=== PATIENT | female | born 2000 | race Caucasian/White ===

== ENCOUNTER 2024-07-29 19:36 | Emergency (ER) | payer SELFPAY | END 2024-07-29 21:11 | LOC: JD.ED 19:36 | DX: S50.12XA Contusion of left forearm, initial encounter (principal); Z88.0 Allergy status to penicillin; Z88.5 Allergy status to narcotic agent; W00.0XXA Fall on same level due to ice and snow, initial encounter | CPT/HCPCS: 73090-26-LT; 73090-LT; 99283 ==